=== PATIENT | female | born 1995 | race Caucasian/White ===

== ENCOUNTER 2016-04-06 22:21 | Emergency (ER) | payer MEDICAID ==
[~2016-04-06] VITALS: Ht 162.6 cm; Wt 73.9 kg
--- OUTSIDE RECORDS SUMMARY | 2016-04-06 23:19 | XMS REPORT | Continuity of Care Document ---
Author Author Interface Organization Interface Address Unknown Phone Unavailable Problems Problem Status Onset Date Classification Date Reported Comments Source No current problems or disability (context-dependent category) Active Problem 10/14/2015 [facility] Medications Medication Details Route Status Patient Instructions Ordering Provider Order Date Source norethindrone 5 mg oral tablet See Instructions, TAKE THREE TABLETS BY MOUTH DAILY, # 90 tablet, Refill(s) 6, Pharmacy: [facility] [id number] [facility] </br>TAKE THREE TABLETS BY MOUTH DAILY Active [facility] methylphenidate 10 mg/5 mL oral solution Refill(s) 0 [facility] sertraline 50 mg oral tablet 50 mg=1 tablet, PO, qDay , # 30 tablet, Refill(s) 0 [facility] sertraline Refill(s) 0 [facility] Nasonex 50 mcg/inh nasal spray Refill(s) 0 [facility] ZyrTEC Refill(s) 0 [facility] Ritalin Refill(s) 0 [facility] Provera 10 mg oral tablet 10 mg=1 tablet, PO, daily, # 10 tablet, Refill(s) 0, Pharmacy: [facility] Active [facility] amitriptyline 10 mg oral tablet 20 mg=2 tablet, PO, HS (bedtime), Pt to take 1 tab at bedtime for 1 week and then 2 tabs at bedtime thereafter, # 60 tablet, Refill(s) 3, Pharmacy: [id number] </br>Pt to take 1 tab at bedtime for 1 week and then 2 tabs at bedtime thereafter Active [facility] Quillivant XR 25 mg/5 mL oral suspension, extended release 40 mg=8 mL [facility] Mag-Ox 400 (242 mg elemental magnesium) oral tablet 242 mg=1 tablet, PO, qDay, with food. 400 mg/1 awfgda=673 mg elemental magnesium., # 30 tablet, Refill(s) 0, Pharmacy: [id number] </br>with food. 400 mg/1 qhcwvi=518 mg elemental magnesium. Active [facility] naproxen sodium 275 mg oral tablet 550 mg=2 tablet, PO , Other-see comments, PRN Pain, at onset of headache. Then 1 tablet PO q8h thereafter., # 30 tablet, Refill(s) 0, Pharmacy: [id number] </br>at onset of headache. Then 1 tablet PO q8h thereafter. Active [facility] Allergies, Adverse Reactions, Alerts Substance Category Reaction Severity Reaction type Status Date Reported Comments Source penicillin drug allergy rash Allergy [facility] Immunizations Immunization Date Given Site Status Last Updated Comments Source Results Order Name Results Value Reference Range Date Interpretation Comments Source F8/VW F8/VWag Ratio 1.66 12/04/2014 [facility] F8 Factor 8 123 % 50 - 150 12/04/2014 [facility] VWAg VWAG 74 % 52 - 175 12/04/2014 [facility] Test T&F Testosterone Free, S 0.9 ng/dL 0.3-1.9 2014 ADDITIONAL INFORMATION
Testing performed by [facility].
[facility] TSH Alg D TSH 1.41 mcIU/mL 0.35 - 5.50 05/20/2014 [facility] DIFA % Neutro 66.4 % 12/01/2014 [facility] DIFA % Imm Gran 0.2 % 12/01/2014 NA This number represents the sum of the metamyelocytes, myelocytes and promyelocytes.
[facility] DIFA % Lymph 24.4 % 12/01/2014 [facility] DIFA % [place] 6.4 % 12/01/2014 [facility] DIFA % Eos 2.0 % 12/01/2014 [facility] DIFA % Baso 0.6 % 12/01/2014 [facility] DIFA Abs Neut 4.33 x10(3) mcL 1.80 - 7.00 12/01/2014 [facility] DIFA Abs Imm Gran 0.01 x10(3 ) mcL 0.00 - 0.04 12/01/2014 [facility] DIFA Abs Lymph 1.59 x10(3) mcL 1.20 - 4.00 12/01/2014 [facility] DIFA Abs [place] 0.42 x10(3) mcL 0.10 - 0.80 12/01/2014 [facility] DIFA Abs Eos 0.13 x10(3) mcL 0.00 - 0.50 12/01/2014 [facility] DIFA Abs Baso 0.04 x10(3) mcL 0.00 - 0.10 12/01/2014 [facility] Test T&F Testosterone Total 38 ng/dL 05/23/2014 REFERENCE VALUE
20-75
Lorenzo Reference
Stages * range (ng/dL)

I (pre-pubertal) <7-20
II <7-47
III 17-75
IV 20-75
V (young adult) 12-60
*Puberty onset (transition from Lorenzo stage I to Lorenzo
stage II) occurs for girls at a median age of 10.5
(+/-2) years. There is evidence that it may occur up to
1 year earlier in obese girls and -Burmese
girls. Progression through Lorenzo stages is variable.
Lorenzo stage V (adult) should be reached by age 18.
ADDITIONAL INFORMATION------
Testing performed by Liquid Chromatography-Tandem Mass
Spectrometry (LC-MS/MS).
Test Performed by:
[facility]
[address] [place] [id number]
Concrete Craftsman: Bolivar Potts II, M.D., Ph.D.
[facility] CBCD WBC 6.52 x10(3) mcL 4.50 - 11.00 12/01/2014 [facility] CBCD RBC 4.75 x10(6) mcL 4.00 - 5.20 12/01/2014 [facility] CBCD HGB 10.6 gm/dL 12.0 - 16.0 12/01/2014 [facility] CBCD HCT 34.5 % 36.0 - 46.0 12/01/2014 [facility] CBCD MCV 72.6 fL 82.0 - 100.0 12/01/2014 [facility] CBCD MCH 22.3 pg 26.0 - 34.0 12/01/2014 [facility] CBCD MCHC 30.7 gm/dL 31.5 - 36.5 12/01/2014 [facility] CBCD RDW 15.3 % 11.5 - 14.5 12/01/2014 [facility] CBCD Platelet 208 x10(3) mcL 150 - 450 12/01/2014 [facility] CBCD MPV 10.7 fL 8.2 - 12.4 12/01/2014 [facility] Estra Estradiol 27 pg/mL 05/20/2014 Children 1-14 days: Estradiol levels are elevated at and fall rapidly to prepubertal values within a few days.
Males (Lorenzo Stages)
Stage I (>14 days and prepubertal) &lt ;13 pg/mL
Stage II < 16 pg/mL
Stage III < 26 pg/mL
Stage IV <38 pg/mL
Stage V 10-40 pg /mL
Females (Lorenzo Stages)
Stage I (>14 days and prepubertal) <20 pg/mL
Stage II <24 pg/mL
Stage III < 60 pg/mL
Stage IV 15- 85 pg/mL
Stage V 15- 350 pg/mL
Adults
Males 10-40 pg/mL
Females 15-350 pg/mL
[facility] DIFA Differential Method Auto Diff 12/01/2014 [facility] Fib Fibrinogen 248 mg/dL 164 - 382 12/01/2014 [facility] RCF/VWag RCF/VWag Ratio 0.82 12/08/2014 [facility] RCF Ristocetin Cofactor 61 54 - 279 12/08/2014 [facility] Ristocetin Cofactor Activity
Reference Ranges: [phone] Internation_Units/dL
[facility] RCF Ristocetin Cofactor Interp The VWF result is above the level that the NHLBI expert panel associates with increased bleeding risk. 12/08/2014 [facility] FSH Follicle Stimulating Hormone 6.5 mIU/mL 1.9 - 20.0 [facility] Vital Signs Vital Sign Value Date Comments Source Current Weight 72.7 kg 2015 [facility] Height/Length 163.8 cm 2015 [facility] Systolic Blood Pressure Cuff Monitored <content ID=' [id number]'>117</content>/<content ID='[id number]'>63</content> mm[Hg ] 10/13/2015 [facility] Systolic Blood Pressure Cuff Monitored <content ID=' [id number]'>131</content>/<content ID='[id number]'>81</content> mm[Hg ] 04/15/2015 [facility] Height/Length 163.3 cm 2015 [facility] Current Weight 68.4 kg 2015 [facility] Systolic Blood Pressure Cuff Monitored <content ID=' [id number]'>115</content>/<content ID='[id number]'>75</content> mm[Hg ] 03/02/2015 [facility] Height/Length 165.4 cm 2014 [facility] Current Weight 67.4 kg 2014 [facility] Current Weight 66.3 kg 2014 [facility] Heart Rate 85 bpm 12/01/2014 [facility] Systolic Blood Pressure Cuff Monitored <content ID=' [id number]'>111</content>/<content ID='[id number]'>59</content> mm[Hg ] 12/01/2014 [facility] Height/Length 161.6 cm 2014 [facility] Current Weight 70.9 kg 2014 [facility] Systolic Blood Pressure Cuff Monitored <content ID=' [id number]'>112</content>/<content ID='[id number]'>66</content> mm[Hg ] 05/20/2014 [facility] Height/Length 163.2 cm 2014 [facility] Heart Rate 91 bpm 04/30/2013 [facility] Systolic Blood Pressure Cuff Monitored 118 mm[Hg] 04/30/2013 [facility] Diastolic Blood Pressure Cuff Monitored 61 mm[Hg] 04/30/2013 [facility] Mean Arterial Pressure 83 mm[Hg] 04/30/2013 [facility] Total Pain Calculation 10 [facility] Total Pain Calculation 0 10/2012 [facility] NBP Activity Calm </br>(01/17/2013 21:05:00) <sup> </sup> 01/18/2013 [facility] NBP Position Sitting </br>(01/17/2013 21:05:00) <sup> </sup> 01/18/2013 [facility] NBP Cuff Sizes Adult </br>(01/17/2013 21:05:00) <sup> </sup> 01/18/2013 [facility] NBP Extremity Arm, left </br>(01/17/2013 21:05:00) <sup> </sup> 01/18/2013 [facility] Temperature Route Oral </br>(01/17/2013 21:05:00) <sup> </sup> 01/18/2013 [facility] Heart Rate 72 bpm 01/18/2013 [facility] Diastolic Blood Pressure Cuff Monitored 65 mm[Hg] 01/18/2013 [facility] Systolic Blood Pressure Cuff Monitored 114 mm[Hg] 01/18/2013 [facility] Temperature Celsius 36.7 Tasha 01/18/2013 [facility] Respiratory Rate 20 BR/min [facility] Total Pain Calculation 10 [facility] Heart Rate 72 bpm 01/18/2013 [facility] Respiratory Rate 20 BR/min [facility] NBP Activity Calm </br>(01/17/2013 23:36:00) <sup> </sup> 01/18/2013 [facility] Encounters Location Location Details Encounter Type Encounter Number Reason For Visit Attending Provider ADM Date DC Date Status Source [facility] CLI [id number] Elva Webb 10/13/20152015 Active [facility] ER [id number] Headache/Migraine Princess Grijalva 01/17/2013 01/18/2013 Active [facility] CLI [id number] Unknown Provider 02/15/2013 Active [facility] CLI [id number] FU- SEIZURES, PAIN Arezou Heshmati 04/30/2013 04/30/[address] [facility] CLI [id number] Eval dysmenorrhea, Brittni Misa 05/20/2014 05/20/[address] [facility] CLI [id number] Brittni Bynum 04/15/[address] [facility] CLI [id number] Elva Webb 03/02/[address] [facility] CLI [id number] Elva Webb 12/01/20142014 [facility] Procedures Procedure Code Date Perfomer Comments Source
[2016-04-06] MEDS ORDERED: KETOROLAC 30 MG/ML VIAL IVP STA (23:20)
--- NOTE | 2016-04-06 23:28 | ED Chest Pain ---
General Chief Complaint: Chest Pain Stated Complaint: CP Source: patient, family Exam Limitations: no limitations History of Present Illness Time seen by provider: 23:14 Initial Comments Here with report of central left sternal border chest pain that is point tender. Onset one hour prior to evaluation and persisted. Worse with movement. Denies recent injury, long trips or plane rides. Does report being under a lot of stress recently. Timing/Duration: 1 hour Severity/Quality: moderate Location: central Radiation: no radiation Activities at Onset: none Prior CP/Workup: no prior chest pain ASA po LICENSED GUIDE: No NTG SL LICENSED GUIDE: No Associated Symptoms: No abdominal pain, No diaphoresis, No fever/chills, No nausea/vomiting, No shortness of breath Allergies and Home Medications Allergies Coded Allergies: Penicillins (Verified Allergy, Unknown, 04/06/16) Home Medications Cetirizine HCl 10 Mg Capsule 10 MG PO DAILY (Reported) Fluticasone Propionate 9.9 Ml [place].susp 1 SPRAY NSEACH DAILY (Reported) Hydroxyzine HCl 10 Mg Tablet 10 MG PO TID (Reported) Levetiracetam 500 Mg Tab.er.24h 500 MG PO DAILY (Reported) Methylphenidate HCl 5 Mg Tablet 15 MG PO BID (Reported) Norethindrone 5 Mg Tab 15 MG PO DAILY (Reported) Review of Systems Constitutional: see HPINo chills, No fever EENTM: No Symptoms Reported Respiratory: See HPIDenies Shortness of Air, Denies Wheezing Cardiovascular: See HPIDenies Irregular Heart Rate, Denies Lightheadedness, Denies Palpitations Gastrointestinal: No Symptoms ReportedDenies Diarrhea, Denies Nausea, Denies Vomiting Genitourinary: No Symptoms Reported Musculoskeletal: no symptoms reported Skin: no symptoms reported All Other Systems Reviewed Negative Unless Noted: Yes Past Miuctph-Egkfkq-Mhhrcq Hx Patient Social History Alcohol Use: Denies Use Recreational Drug Use: No Smoking Status: Never a Smoker Recent Foreign Travel: No Contact w/Someone Who Travel: No Surgeries HX Surgeries: Yes Surgeries: Adenoidectomy, Bladder Surgery, Ear Surgery, Orthopedic, Tracheostomy Respiratory Hx Respiratory Disorders: No Cardiovascular Hx Cardiac Disorders: No Neurological Hx Neurological Disorders: Yes ([place]) Neurological Disorders: Developmental Disorder, Seizure Disorder Genitourinary Hx Genitourinary Disorders: Yes Gastrointestinal Hx Gastrointestinal Disorders: No Musculoskeletal Hx Musculoskeletal Disorders: Yes Musculoskeletal Disorders: Fractures Endocrine Hx Endocrine Disorders: No HEENT HX ENT Disorders: Yes HEENT Disorders: Chronic Ear Infection Cancer Hx Cancer: No Psychosocial Hx Psychiatric Problems: Yes Behavioral Health Disorders: ADD/ADHD Reviewed Nursing Assessment Reviewed/Agree w Nursing PMH: Yes Family Medical History Significant Family History: No Pertinent Family Hx Physical Exam Vital Signs Vital Sign - Last 12Hours 04/06/16 22:25 Temp 96.7 Pulse 81 Resp 18 B/P 129/87 Pulse Ox 100 O2 Delivery Room Air Capillary Refill : General Appearance: No Apparent Distress WD/WN HEENT: PERRL/EOMI Pharynx Normal Neck: Non Tender Supple Respiratory: Lungs Clear Normal Breath Sounds Other (point tender to the left sternal border reproducible chest pain.) Cardiovascular: Regular Rate, Rhythm No Murmur Gastrointestinal: Non Tender Soft Extremity: Normal Inspection Normal Range of Motion Non Tender No Calf Tenderness Neurologic/Psychiatric: Alert Oriented x3 Skin: Normal Color Warm/Dry Progress/Results/Core Measures Results/Orders Lab Results Laboratory Tests Test 04/06/16 23:30 Range/Units Alanine Aminotransferase (ALT/SGPT) 29 0-55 U/L Albumin 5.0 H 3.2-4.5 G/DL Alkaline Phosphatase 69 40-136 U/L Anion Gap 12 5-14 MMOL/L Aspartate Amino Transf (AST/SGOT) 15 5-34 U/L BUN/Creatinine Ratio 8 Basophils # (Auto) 0.0 0.0-0.1 10^3/uL Basophils (%) (Auto) 1 0-10 % Blood Urea Nitrogen 6 L 7-18 MG/DL Calcium Level 9.6 8.5-10.1 MG/DL Carbon Dioxide Level 22 21-32 MMOL/L Chloride Level 105 98-107 MMOL/L Creatinine 0.75 0.60-1.30 MG/DL D-Dimer 0.30 0.00-0.49 UG/ML Eosinophils # (Auto) 0.1 0.0-0.3 10^3/uL Eosinophils (%) (Auto) 2 0-10 % Estimat Glomerular Filtration Rate > 60 Glucose Level 99 70-105 MG/DL Hematocrit 45 35-52 % Hemoglobin 15.3 11.5-16.0 G/DL Lymphocytes # (Auto) 2.1 1.0-4.0 X 10^3 Lymphocytes (%) (Auto) 24 12-44 % Mean Corpuscular Hemoglobin 28 25-34 PG Mean Corpuscular Hemoglobin Concent 34 32-36 G/DL Mean Corpuscular Volume 83 80-99 FL Mean Platelet Volume 10.2 7.4-10.4 FL Monocytes # (Auto) 0.6 0.0-1.0 X 10^3 Monocytes (%) (Auto) 7 0-12 % Neutrophils # (Auto) 5.8 1.8-7.8 X 10^3 Neutrophils (%) (Auto) 67 42-75 % Platelet Count 268 130-400 10^3/uL Potassium Level 3.4 L 3.6-5.0 MMOL/L Red Blood Count 5.48 4.35-5.85 10^6/uL Red Cell Distribution Width 13.6 10.0-14.5 % Sodium Level 139 135-145 MMOL/L Total Bilirubin 0.5 0.1-1.0 MG/DL Total Protein 7.7 6.4-8.2 G/DL Troponin I < 0.30 <0.30 NG/ML White Blood Count 8.7 4.3-11.0 10^3/uL My Orders Orders-STEPHEN KIMBALL MD Cbc With Automated Diff (04/06/16 23:20) Comprehensive Metabolic Panel (04/06/16 23:20) Fibrin Degradation Products (04/06/16 23:20) Troponin I (04/06/16 23:20) Saline Lock/Iv-Start (04/06/16 23:20) Urine Bedside (04/06/16 23:20) Ekg Tracing (04/06/16 23:20) Ketorolac Injection (Toradol Injection) (04/06/16 23:20) Chest Pa/Lat (2 View) (04/07/16 00:01) Vital Signs/I&O Vital Sign - Last 12Hours 04/06/16 22:25 Temp 96.7 Pulse 81 Resp 18 B/P 129/87 Pulse Ox 100 O2 Delivery Room Air Progress Note : Progress Note Seen and evaluated. IV, labs, chest x-ray and EKG ordered. UCG ordered. Toradol 30 mg IV. Monitor patient. 0120: Overall much improved. No significant findings on any of the evaluation. Discharged home with return precautions. Patient verbalize understanding instructions and agreement with plan. ECG Initial ECG Impression Date: Apr 06, 2016 Initial ECG Impression Time: 22:46 Initial ECG Rate: 81 Initial ECG Rhythm: Normal Sinus Initial ECG Impression: Normal Initial ECG Comparisson: No Previous ECG Available Comment Sinus rhythm with normal axis. No evidence of ST elevation PR. No previous available for comparison. Interpreted by me. Diagnostic Imaging Diagonstic Imaging: Xray Plain Films/CT/US/NM/MRI: chest Comments No acute findings Reviewed: Reviewed by Me Departure Impression Impression: Primary Impression: Chest wall pain Disposition: HOME, SELF-CARE Condition: Improved Departure-Patient Inst. Decision time for Depature: 01:24 Referrals: LILI TELLO (PCP/Family) Primary Care Physician Patient Instructions: Chest Pain (DC) Add. Discharge Instructions: All discharge instructions reviewed with patient and/or family. Voiced understanding. You may take ibuprofen 600 mg every 8 hours as needed for pain. Follow-up with your DrLeonardo in a few days for recheck. Return for worse pain, fever, vomiting, weakness, breathing problems or other concerns as needed. Continue home medications as previously prescribed. STEPHEN KIMBALL MD Apr 06, 2016 23:28
[2016-04-06 23:52] LABS: BASOPHILS % (AUTO) 1 % (0-10); EOSINOPHILS # (AUTO) 0.1 10^3/uL (0.0-0.3); EOSINOPHILS % (AUTO) 2 % (0-10); LYMPHOCYTES # (AUTO) 2.1 X 10^3 (1.0-4.0); LYMPHOCYTES % (AUTO) 24 % (12-44); MEAN CORPUSCULAR HEMOGLOBIN 28 PG (25-34); MEAN CORPUSCULAR HGB CONC 34 G/DL (32-36); MEAN CORPUSCULAR VOLUME 83 FL (80-99); MEAN PLATELET VOLUME 10.2 FL (7.4-10.4); MONOCYTES # (AUTO) 0.6 X 10^3 (0.0-1.0); MONOCYTES % (AUTO) 7 % (0-12); NEUTROPHILS # (AUTO) 5.8 X 10^3 (1.8-7.8); NEUTROPHILS % (AUTO) 67 % (42-75); PLATELET COUNT 268 10^3/uL (130-400); RED BLOOD COUNT 5.48 10^6/uL (4.35-5.85); RED CELL DISTRIBUTION WIDTH 13.6 % (10.0-14.5); WHITE BLOOD COUNT 8.7 10^3/uL (4.3-11.0)
[2016-04-06] MEDS ORDERED: LEVE500T76 PO (23:52)
[2016-04-06] MEDS ORDERED: NF-NORETH5 PO (23:52)
[2016-04-06] MEDS ORDERED: FLUT9.9S NSEACH (23:52)
[2016-04-06] MEDS ORDERED: CETI10CA PO (23:52)
[2016-04-06] MEDS ORDERED: HYDR-3584 PO (23:52)
[2016-04-06] MEDS ORDERED: METH5TAB4 PO (23:52)
[2016-04-07 00:06] LABS: ALANINE AMINOTRANSFERASE 29 U/L (0-55); ANION GAP 12 MMOL/L (5-14); ASPARTATE AMINO TRANSFERASE 15 U/L (5-34); BILIRUBIN,TOTAL 0.5 MG/DL (0.1-1.0); BLOOD UREA NITROGEN 6 MG/DL (7-18); BUN/CREATININE RATIO 8; CALCIUM 9.6 MG/DL (8.5-10.1); CARBON DIOXIDE 22 MMOL/L (21-32); CHLORIDE 105 MMOL/L (98-107); CREATININE SERUM 0.75 MG/DL (0.60-1.30); GFR ESTIMATED > 60; GLUCOSE 99 MG/DL (70-105); POTASSIUM 3.4 MMOL/L (3.6-5.0); SODIUM 139 MMOL/L (135-145); TOTAL PROTEIN 7.7 G/DL (6.4-8.2)
[2016-04-07 00:12] LABS: TROPONIN I < 0.30 NG/ML (<0.30)
[2016-04-07 01:38] VITALS: BP 125/89
--- NOTE | 2016-04-07 06:28 | Diagnostic Imaging Report ---
INDICATION: Chest pain PA and lateral views of the chest are obtained. COMPARISON: No previous study is available for comparison at this time. FINDINGS: Heart size and pulmonary vasculature are within normal limits, and the lungs are clear, bilaterally. IMPRESSION: Unremarkable chest. Dictated by: Dictated on workstation # [id number]
== END 2016-04-07 01:37 | disposition home or self-care (01) ==
LOC: EDUNIT# 22:21 → ER 22:21
DX: R07.89 Other chest pain (principal)
CPT/HCPCS: 36415; 71020; 80053; 84484; 84703; 85025; 85379; 93005; 96374

== ENCOUNTER 2018-10-30 20:44 | Emergency (ER) | payer MEDICAID ==
[~2018-10-30] VITALS: Ht 165.1 cm; Wt 76.2 kg
[~2018-10-30 20:44] MED LIST: CETI10CA PO; FLUT9.9S NSEACH; HYDR-3584 PO; LEVE500T95 PO; METH5TAB4 PO; NF-NORETH5 PO
[2018-10-30] MEDS ORDERED: MMT17NA NS (22:00)
[2018-10-30] MEDS ORDERED: HYDR-3062 PO (22:00)
[2018-10-30] MEDS ORDERED: IBUP-1780 PO (22:00)
[2018-10-30 22:15] LABS: BILIRUBIN,URINE NEGATIVE (NEGATIVE); CLARITY,URINE SLIGHTLY CLOUDY; COLOR,URINE YELLOW; GLUCOSE, URINE (UA) NEGATIVE (NEGATIVE); KETONES,URINE NEGATIVE (NEGATIVE); LEUKOCYTE ESTERASE ,URINE NEGATIVE (NEGATIVE); NITRITE,URINE NEGATIVE (NEGATIVE); PH,URINE 8 (5-9); PROTEIN,URINE NEGATIVE (NEGATIVE); UROBILINOGEN,URINE NORMAL (NORMAL)
[2018-10-30 22:21] LABS: AMORPHOUS SEDIMENT,UR MOD AMOR PHOSPHATE /LPF; BACTERIA,URINE TRACE /HPF
[2018-10-30 22:24] VITALS: BP_SYST 105; BP_SYST 107; BP_SYST 109; BP_DIAS 71; BP_DIAS 76; BP_DIAS 79
[2018-10-30 22:25] LABS: AMPHETAMINE SCREEN, URINE NEGATIVE (NEGATIVE); BENZODIAZEPINES SCREEN URINE NEGATIVE (NEGATIVE); COCAINE SCREEN URINE NEGATIVE (NEGATIVE); METHAMPHETAMINE SCREEN URINE S NEGATIVE (NEGATIVE)
[2018-10-30 22:26] LABS: BARBITURATE SCREEN URINE NEGATIVE (NEGATIVE); CANNABINOID SCREEN, URINE NEGATIVE (NEGATIVE); METHADONE STAT NEGATIVE (NEGATIVE); OPIATE SCREEN URINE NEGATIVE (NEGATIVE); OXYCODONE STAT NEGATIVE (NEGATIVE); PROPOXYPHENE STAT NEGATIVE (NEGATIVE); TRICYCLIC ANTIDEPRESSANTS SCRE NEGATIVE (NEGATIVE)
--- NOTE | 2018-10-30 22:53 | NUR ---
mother of pt to nurses station at this time, reporting request to leave d/t unsatisfaction of time. Attempted to deescalate mother, explaining timing of results and plan of care. Mother cussing with frustration, refusing to sign AMA paper and demands to talk with housekeeping and laundry team leader.
--- NOTE | 2018-10-30 22:58 | NUR ---
Damien Schmidt. and Dex in room to talk with patient's mother per request.
[2018-10-31] MEDS ORDERED: NS IV 1000 ML 1,000 ML IV SCH (00:13)
[2018-10-31] MEDS ORDERED: diphenhydrAMINE 25 MG TAB (BENADRYL) PO ONE (00:15)
[2018-10-31] MEDS ORDERED: ONDANSETRON 4 MG/2 ML (SDV) Z0FRAN IVP ONE (00:15)
[2018-10-31] MEDS ORDERED: ACETAMINOPHEN 325 MG TABLET PO ONE (00:15)
[2018-10-31] MEDS ORDERED: KETOROLAC 30 MG/ML VIAL IVP ONE (00:15)
[2018-10-31] MEDS ORDERED: PROCHLORPERAZINE 10 MG/2ML INJ (COMPAZINE) IV ONE (00:15)
--- NOTE | 2018-10-31 00:22 | ED Headache ---
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 PT HAS BEEN HAVING A SEIZURE FOR THE LAST HOUR PER MOM. Nursing Sepsis Screen: No Definite Risk Source: patient Exam Limitations: no limitations History of Present Illness Date Seen by Provider: Oct 31, 2018 Time Seen by Provider: 00:09 Initial Comments Patient presents to ER by private conveyance with chief complaint of a headache and bilateral throbbing. She says it's usually treated by migraine medicines. She denies having migraine she says she has seizure-like activity that exhibits itself as excruciating headache. It started at 8:00 and she took some ibuprofen, Maxalt 10 mg and hydrocodone 5 mg. She is followed by Dr. Harden, neurology in [place]. She lives in [facility] she is accompanied by her mom. She is accompanied with some paperwork from previous neurology visits demonstrating that he has medial temporal lobe sclerosis bilaterally which is resulted in her headaches. She has a document demonstrating the results of an MRI as well as some documents that demonstrated a normal EEG. She has no surgical candidate. They've tried 5 different antiseizure medicines but no benefit according to mom. She is no longer on the lamotrigine. Mom says typically if the pain lasts more than 20 minutes to the ER and at the ER she is given a cocktail of migraine medicines including Toradol, nausea medicines and it makes her feel better. She does not have photophobia or aura. She does have nausea but is not vomiting. Allergies and Home Medications Allergies Coded Allergies: Penicillins (Verified Allergy, Unknown, 04/06/16) Home Medications Cetirizine HCl 10 Mg Capsule, 10 MG PO DAILY, (Reported) Fluticasone Propionate 9.9 Ml [place].susp, 1 SPRAY NSEACH DAILY, (Reported) Hydrocodone/Acetaminophen 1 Each Tablet, 1 EACH PO Q4-6HR PRN for PAIN-MODERATE, (Reported) Hydroxyzine HCl 10 Mg Tablet, 10 MG PO TID, (Reported) Ibuprofen 800 Mg Tablet, 800 MG PO Q8H, (Reported) Levetiracetam 500 Mg Tab.er.24h, 500 MG PO DAILY, (Reported) Methylphenidate HCl 5 Mg Tablet, 15 MG PO BID, (Reported) Mometasone Furoate 17 Gm Naspr, 17 GM NS DAILY, (Reported) Norethindrone 5 Mg Tab, 15 MG PO DAILY, (Reported) Patient Home Medication List Home Medication List Reviewed: Yes Review of Systems Review of Systems Constitutional: No chills, No diaphoresis Eyes: Denies Blindness, Denies Blurred Vision Ears, Nose, Mouth, Throat: denies ear pain Respiratory: No cough Cardiovascular: No chest pain, No palpitations Past Opypvyi-Ygsfde-Nuzqhv Hx Patient Social History Alcohol Use: Denies Use Recreational Drug Use: No Smoking Status: Never a Smoker Recent Foreign Travel: No Contact w/Someone Who Travel: No Recent Infectious Disease Expo: No Recent Hopitalizations: No Physical Abuse: No Sexual Abuse: No Mistreated: No Fear: No Immunizations Up To Date PED Vaccines UTD: Yes Past Medical History Surgeries: Yes Adenoidectomy, Bladder Surgery, Ear Surgery, Orthopedic, Tracheostomy Respiratory: No Cardiac: No Neurological: Yes ([place]) Developmental Disorder, Seizure Disorder Genitourinary: No Gastrointestinal: No Musculoskeletal: Yes Fractures Endocrine: No HEENT: Yes Chronic Ear Infection Cancer: No Psychosocial: Yes ADD/ADHD Integumentary: No Blood Disorders: No Family Medical History No Pertinent Family Hx Physical Exam Vital Signs Vital Signs - First Documented 10/30/18 20:48 Temp 98.2 Pulse 68 Resp 18 B/P (MAP) 114/81 (92) Pulse Ox 99 O2 Delivery Room Air Capillary Refill : Less Than 3 Seconds Height, Weight, BMI Height: 5'5.00" Weight: 168lbs. oz. 76.522833gz; BMI Method:Stated General Appearance: WD/WN, mild distress HEENT: PERRL/EOMI, normal ENT inspection, pharynx normal Neck: non-tender, full range of motion, supple, normal inspection Cardiovascular: normal peripheral pulses, regular rate, rhythm, no edema Respiratory: lungs clear, normal breath sounds, no respiratory distress, no accessory muscle use Gastrointestinal: non tender, soft Psychiatric: alert, oriented x 3 Cra[place] Nerves: normal hearing, normal speech, PERRL Coordination/Gait: normal gait Motor/Sensory: no motor deficit, no sensory deficit Skin: normal color, warm/dry Progress/Results/Core Measures Results/Orders Lab Results Laboratory Tests Test 10/30/18 22:05 Range/Units Urine Color YELLOW Urine Clarity SLIGHTLY CLOUDY Urine pH 8 5-9 Urine Specific [place] 1.015 L 1.016-1.022 Urine Protein NEGATIVE NEGATIVE Urine Glucose (UA) NEGATIVE NEGATIVE Urine Ketones NEGATIVE NEGATIVE Urine Nitrite NEGATIVE NEGATIVE Urine Bilirubin NEGATIVE NEGATIVE Urine Urobilinogen NORMAL NORMAL MG/DL Urine Leukocyte Esterase NEGATIVE NEGATIVE Urine RBC (Auto) NEGATIVE NEGATIVE Urine RBC NONE /HPF Urine WBC NONE /HPF Urine Squamous Epithelial Cells 5-10 /HPF Urine Crystals PRESENT H /LPF Urine Amorphous Sediment MOD ABIGAIL PHOSPHATE H /LPF Urine Bacteria TRACE /HPF Urine Casts NONE /LPF Urine Mucus NEGATIVE /LPF Urine Culture Indicated NO Urine Opiates Screen NEGATIVE NEGATIVE Urine Oxycodone Screen NEGATIVE NEGATIVE Urine Methadone Screen NEGATIVE NEGATIVE Urine Propoxyphene Screen NEGATIVE NEGATIVE Urine Barbiturates Screen NEGATIVE NEGATIVE Ur Tricyclic Antidepressants Screen NEGATIVE NEGATIVE Urine Phencyclidine Screen NEGATIVE NEGATIVE Urine Amphetamines Screen NEGATIVE NEGATIVE Urine Methamphetamines Screen NEGATIVE NEGATIVE Urine Benzodiazepines Screen NEGATIVE NEGATIVE Urine Cocaine Screen NEGATIVE NEGATIVE Urine Cannabinoids Screen NEGATIVE NEGATIVE My Orders Orders - AMY,CASI J Ua Culture If Indicated (10/30/18 21:09) Ekg Tracing (10/30/18 21:09) Continuous Ekg Monitoring (10/30/18 21:09) Orthostatic Vital Signs (Adult (10/30/18 21:09) Urine Bedside (10/30/18 21:09) Drug Screen Stat (Urine) (10/30/18 21:09) Ketorolac Injection (Toradol Injection) (10/31/18 00:15) Acetaminophen Tablet/Caplet (Tylenol T (10/31/18 00:15) Diphenhydramine Tablet (Benadryl Tablet) (10/31/18 00:15) Prochlorperazine Injection (Compazine In (10/31/18 00:15) Ondansetron Injection (Zofran Injectio (10/31/18 00:15) Ed Iv/Invasive Line Start (10/31/18 00:13) Ns Iv 1000 Ml (Sodium Chloride 0.9%) (10/31/18 00:13) Medications Given in ED Current Medications Medications Dose Ordered Sig/Paolo Route Start Time Stop Time Status Last Admin Dose Admin Acetaminophen 650 mg ONCE ONCE PO 10/31/18 00:15 10/31/18 00:17 DC 10/31/18 00:40 650 MG Diphenhydramine HCl 25 mg ONCE ONCE PO 10/31/18 00:15 10/31/18 00:17 DC 10/31/18 00:39 25 MG Ketorolac Tromethamine 30 mg ONCE ONCE IVP 10/31/18 00:15 10/31/18 00:17 DC 10/31/18 00:40 30 MG Ondansetron HCl 4 mg ONCE ONCE IVP 10/31/18 00:15 10/31/18 00:18 DC 10/31/18 00:41 4 MG Prochlorperazine Edisylate 10 mg ONCE ONCE IV 10/31/18 00:15 10/31/18 00:17 DC 10/31/18 00:42 10 MG Vital Signs/I&O 10/30/18 10/30/18 10/31/18 20:48 22:24 01:36 Temp 98.2 98.2 Pulse 68 70 63 63 63 Resp 18 18 B/P (MAP) 114/81 (92) 109/71 (84) 105/76 (86) 105/76 (86) 107/79 (88) Pulse Ox 99 99 O2 Delivery Room Air Blood Pressure Mean: 88 Progress Progress Note : Time: 01:22 Progress Note Tylenol, Toradol, Compazine, Benadryl, Zofran. discussed steroids but the patient does not want shot. Patient is now sitting up smiling feels much better having no pain and wants to go home. Orthostatic vital signs are unremarkable. 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 Decision time for Depature: 01:24 Referrals: TOMASA VALLEJO DO (PCP/Family) Primary Care Physician Patient Instructions: Headache, Adult Add. Discharge Instructions: Go home drink plenty fluids and get some sleep. All discharge instructions reviewed with patient and/or family. Voiced understanding. CASI REYES Oct 31, 2018 00:22
[2018-10-31 01:36] VITALS: BP 105/76
== END 2018-10-31 01:36 | disposition home or self-care (01) ==
LOC: EDUNIT# 20:44 → ER 20:45
DX: G40.802 Other epilepsy, not intractable, without status epilepticus (principal); G93.81 Temporal sclerosis; R51 Headache; F89 Unspecified disorder of psychological development; F90.9 Attention-deficit hyperactivity disorder, unspecified type; Z88.0 Allergy status to penicillin; Z93.0 Tracheostomy status
CPT/HCPCS: 80306; 81000; 84703; 93005; 96361; 96374; 96375

== ENCOUNTER 2020-09-25 19:16 | Emergency (ER) | payer MEDICAID ==
[~2020-09-25] VITALS: Ht 165 cm; Wt 75.2 kg
[~2020-09-25 19:16] MED LIST changes: +ACHD5005 PO; +IBUP-1780 PO; +MMT17NA NS
[2020-09-25 19:55] VITALS: BP 123/69
--- NOTE | 2020-09-25 20:07 | ED Lower Extremity ---
General Chief Complaint: Lower Extremity Stated Complaint: L LEG INJ Source: patient, family Exam Limitations: no limitations History of Present Illness Date Seen by Provider: Sep 25, 2020 Time Seen by Provider: 20:05 Initial Comments To ER by accompanied by an older female who is "guardian". Patient stepped into a hole in the yard and now has left knee pain as well as left lower leg pain. She ambulates in the ER without use of assistive device. No other injuries. Onset: just prior to arrival Severity: moderate Pain/Injury Location: left leg Method of Injury: fell Modifying Factors: Worse With Movement Allergies and Home Medications Allergies Coded Allergies: Penicillins (Verified Allergy, Unknown, 04/06/16) Home Medications Cetirizine HCl 10 Mg Capsule, 10 MG PO DAILY, (Reported) Fluticasone Propionate 9.9 Ml [place].susp, 1 SPRAY NSEACH DAILY, (Reported) Hydrocodone Bit/Acetaminophen 1 Each Tablet, 1 EACH PO Q4-6HR PRN for PAIN- MODERATE, (Reported) Hydroxyzine HCl 10 Mg Tablet, 10 MG PO TID, (Reported) Ibuprofen 800 Mg Tablet, 800 MG PO Q8H, (Reported) Levetiracetam 500 Mg Tab.er.24h, 500 MG PO DAILY, (Reported) Methylphenidate HCl 5 Mg Tablet, 15 MG PO BID, (Reported) Mometasone Furoate 17 Gm Naspr, 17 GM NS DAILY, (Reported) Norethindrone 5 Mg Tab, 15 MG PO DAILY, (Reported) Patient Home Medication List Home Medication List Reviewed: Yes Review of Systems Constitutional: see HPI EENTM: see HPI Respiratory: no symptoms reported Cardiovascular: no symptoms reported Genitourinary: no symptoms reported Musculoskeletal: see HPI Skin: no symptoms reported Psychiatric/Neurological: No Symptoms Reported Past Geeooal-Gaymrb-Jwubdz Hx Patient Social History Tobacco Use?: No Use of E-Cig and/or Vaping dev: No Substance use?: No Alcohol Use?: No Pt feels they are or have been: No Immunizations Up To Date PED Vaccines UTD: Yes Past Medical History Surgeries: Yes Adenoidectomy, Bladder Surgery, Ear Surgery, Orthopedic, Tracheostomy Respiratory: No Cardiac: No Neurological: Yes ([place]) Developmental Disorder, Seizure Disorder Genitourinary: No Gastrointestinal: No Musculoskeletal: Yes Fractures Endocrine: No HEENT: Yes Chronic Ear Infection Cancer: No Psychosocial: Yes ADD/ADHD Integumentary: No Blood Disorders: No Family Medical History No Pertinent Family Hx Physical Exam Vital Signs Capillary Refill : Height, Weight, BMI Height: 5'5.00" Weight: 168lbs. oz. 76.010686xt; BMI Method:Stated General Appearance: WD/WN, no apparent distress Respiratory: no respiratory distress, no accessory muscle use Hips: bilateral hip non-tender, bilateral hip normal inspection, bilateral hip normal range of motion Legs: bilateral leg non-tender, bilateral leg normal inspection, bilateral leg normal range of motion Knees: left knee pain, left knee other (No effusion full range of motion no ecchymosis no abrasion) Ankles: bilateral ankle non-tender, bilateral ankle normal inspection, bilateral ankle normal range of motion Neurologic/Psychiatric: alert, normal mood/affect, oriented x 3 Skin: normal color, warm/dry Strong dorsalis pedis pulse Departure Impression Primary Impression: Sprain of knee Disposition: 01 HOME, SELF-CARE Condition: Stable Departure-Patient Inst. Decision time for Depature: 20:07 Referrals: TOMASA VALLEJO DO (PCP/Family) Primary Care Physician Patient Instructions: Knee Sprain ED ANGIE BARCLAY [employer] ADMINISTRATOR Sep 25, 2020 20:07
[2020-09-25] MEDS ORDERED: IBUPROFEN 800 MG (MOTRIN) TAB PO ONE (20:15)
[2020-09-25] MEDS ORDERED: ACETAMINOPHEN 500 MG TAB (TYLENOL) PO ONE (20:15)
--- NOTE | 2020-09-25 20:28 | Diagnostic Imaging Report ---
INDICATION: Left knee injury, pain. COMPARISON: None. EXAMINATION: Three views of the left knee. FINDINGS: No fracture or dislocation. Articular surfaces are normal. There is no joint effusion. No foreign body. IMPRESSION: Negative left knee. Dictated by: Dictated on workstation # [id number]
--- NOTE | 2020-09-25 20:30 | Diagnostic Imaging Report ---
INDICATION: Left leg injury. COMPARISON: None. EXAMINATION: Four views of the left tibia and fibula. FINDINGS: No fracture or dislocation. Articular surfaces are normal. No foreign body is seen. IMPRESSION: Negative left tibia and fibula. Dictated by: Dictated on workstation # [id number]
== END 2020-09-25 20:54 | disposition home or self-care (01) ==
LOC: EDUNIT# 19:16 → ER 19:18
DX: S83.92XA Sprain of unspecified site of left knee, initial encounter (principal); G40.909 Epilepsy, unspecified, not intractable, without status epilepticus; Z79.899 Other long term (current) drug therapy; W17.2XXA Fall into hole, initial encounter; Y92.096 Garden or yard of other non-institutional residence as the place of occurrence of the external cause
CPT/HCPCS: 73562; 73590